=== PATIENT | male | born 1990 | race American Indian/Alaskan Native ===

== ENCOUNTER 2016-08-01 18:16 | Emergency (ER) | payer MEDICAID ==
[2016-08-01 18:59] LABS: Basophils % (Auto) 0.7 % (0.0-1.8); Eosinophils % (Auto) 1.3 % (0.0-4.3); Hematocrit 44.2 % (35.5-45.6); Hemoglobin 14.1 gm/dl (11.8-15.2); Mean Corpuscular HGB Conc 32 % (32-34); Mean Corpuscular Volume 81 fl (84-94); Platelet Count 187 K/mm3 (140-440); Red Blood Count 5.45 M/mm3 (3.65-5.03); Red Cell Distribution Width 15.3 % (13.2-15.2); White Blood Count 4.5 K/mm3 (4.5-11.0)
[2016-08-01 19:04] LABS: Mean Corpuscular Hemoglobin 26 pg (28-32)
[2016-08-01 19:11] LABS: Urine Drugs of Abuse Note Disclamer
[2016-08-01 19:11] LABS: Anion Gap 18 mmol/L; BUN/Creatinine Ratio 9.16; Blood Urea Nitrogen 11 mg/dL (9-20); Calcium 9.5 mg/dL (8.4-10.2); Carbon Dioxide 24 mmol/L (22-30); Chloride 97.9 mmol/L (98-107); Glucose 76 mg/dL (75-100); Potassium 4.5 mmol/L (3.6-5.0); Sodium 135 mmol/L (137-145)
[2016-08-01 19:21] LABS: Bilirubin,Urine NEG (Negative); Blood,Urine NEG (Negative); Ketones,Urine TR mg/dL (Negative); Leukocyte Esterase,Urine NEG (Negative); Mucus,Urine 2+ /HPF; Nitrite,Urine NEG (Negative)
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
[2016-08-03 12:44] LABS: Alanine Aminotransferase 15 units/L (7-56); Alkaline Phosphatase 60 units/L (35-129)
[2016-08-04 08:05] VITALS: BP 114/66
--- NOTE | 2016-08-04 13:24 | Progress Note ---
Subjective - Reason for Consult Consult date: 08/04/16 Reason for consult: Psychiatry Follow-up - Chief Complaint Chief complaint: "I fell a little better" 26 year old BM with prior psych history of scpt and ADHD presented to the ER after being brought in by his mother for ongoing +AH telling him to harm himself. It's been present for the last 2 months per the patient with no known triggers. Today patient is calm and cooperative during the assessment. He stated that the voices has decreased "a little." He states since the voice has decreased he can think better. He stated that his SI's are still active. He could not tell me how he would commit suicide. He denies HI's, VH's, and depression symptoms. He stated that he ate "okay" and sleep "well" last night. Mental Status Exam - Vital signs Last Vital Signs Temp 98 F 08/04/16 08:03 Pulse 48 L 08/04/16 08:03 Resp 14 08/04/16 08:03 BP 114/66 08/04/16 08:03 Pulse Ox 100 08/04/16 08:03 - Exam Narrative exam: MSE: Appearance: calm, cooperative Behavior: poor eye contact Speech: regular rate and tone Mood: "flat" Affect: congruent to mood Thought Process: circumstantial Thought Content: denies /HI's and VH's Motor Activity: ambulatory Cognition: A/Ox3 Insight: limited Judgment: limited Assessment and Plan Impression: MDD severe type. Substance Use DO, Historical Diagnosis Bipolar. Today patient is calm and cooperative during the assessment. He stated that the voices has decreased "a little." He states since the voice has decreased he can think better. He stated that his SI's are still active. He could not tell me how he would commit suicide. He denies HI's, VH's, and depression symptoms. Positive for cocaine, marijuana, benzos, and amphetamines. No acute withdrawals noted (benzos/cocaine). Patient is homeless. Recommendation/Plan: Continue 1013 with possible placement to inp/out patient psy services. Continue Seroquel 300 mg PO HS for psychotic symptoms and Depakote 500 mg BID for mood. Discussed the importance to abstain from recreational drug use with patient.
== END 2016-08-04 11:50 ==
LOC: ED 18:16 → EEVIPCON 18:16 → ED 08-04 11:50
DX: R44.0 Auditory hallucinations (principal); R44.1 Visual hallucinations; F12.10 Cannabis abuse, uncomplicated; R56.9 Unspecified convulsions; F31.9 Bipolar disorder, unspecified; F20.9 Schizophrenia, unspecified; F29 Unspecified psychosis not due to a substance or known physiological condition; F17.200 Nicotine dependence, unspecified, uncomplicated; F14.10 Cocaine abuse, uncomplicated
CPT/HCPCS: 36415; 80048; 80307; 81001; 84075; 84450; 84460; 85025; 99285; G0480; 80320